=== PATIENT | female | born 1970 | race Caucasian/White ===

== ENCOUNTER 2019-09-07 18:51 | Emergency (ER) | payer MEDICAID ==
[~2019-09-07] VITALS: Ht 165.1 cm; Wt 89.8 kg
[~2019-09-07 18:51] MED LIST: CODE118S2 PO
[2019-09-07 18:56] VITALS: BP 156/106
[2019-09-07] MEDS ORDERED: IBUPROFEN 600 MG TAB PO ONE (19:30)
[2019-09-07 20:28] VITALS: BP 156/106
== END 2019-09-07 20:33 | disposition home or self-care (01) ==
LOC: MED 18:51
DX: S60.221A Contusion of right hand, initial encounter (principal); I10 Essential (primary) hypertension; Z79.899 Other long term (current) drug therapy; Y93.89 Activity, other specified; Y92.89 Other specified places as the place of occurrence of the external cause; Y99.8 Other external cause status
CPT/HCPCS: 29125; 73130; 99283; Q0092

== ENCOUNTER 2020-01-18 09:45 | Emergency (ER) | payer SELFPAY ==
[~2020-01-18] VITALS: Ht 165.1 cm; Wt 86.2 kg
[2020-01-18 09:51] VITALS: BP 153/81
--- NOTE | 2020-01-18 09:56 | NUR ---
WAIT AT LOBBY. HANDED ON URINE CUP.
--- NOTE | 2020-01-18 10:09 | NUR ---
PT AMBULATED TO BED 3.
--- NOTE | 2020-01-18 10:23 | NUR ---
49/F C/O NAUSEA, EPIGASTRIC PAIN RADIATING UP THE CHEST X LAST NIGHT THAT STARTED AFTER EATING. PT STATES SHE HAS ACID REFLUX. STATES MILD SOB ALONG W/ PAIN. BP 153/81 AT THIS TIME. CONNECTED TO BEDSIDE MONITOR. BEDRAILS UP X1, BED LOCKED & LOW, ERMD TO EVALUATE . MED HX: HTN
--- NOTE | 2020-01-18 10:38 | NUR ---
DR MORTENSEN EVALUATING PT AT BEDSIDE
--- NOTE | 2020-01-18 10:40 | NUR ---
BLOOD DRAW HANDED TO EXTRUDING DEPARTMENT SUPERVISOR AT BEDSIDE
[2020-01-18 10:51] LABS: BASOPHILS # (AUTO) 0.1 K/uL (0.00-0.22); BASOPHILS % (AUTO) 0.9 % (0.0-2.0); EOSINOPHILS % (AUTO) 0.4 % (0.0-4.0); HEMATOCRIT 44.5 % (36-48); HEMOGLOBIN 14.8 g/dL (12.0-16.0); LYMPHOCYTES # (AUTO) 1.4 K/uL (2.5-16.5); LYMPHOCYTES % (AUTO) 17.7 % (20.5-51.1); MEAN CORPUSCULAR HEMOGLOBIN 31 pg (27-31); MEAN CORPUSCULAR HGB CONC 33 g/dL (33-37); MEAN CORPUSCULAR VOLUME 92.6 fL (80-94); MONOCYTES # (AUTO) 0.5 K/uL (0.8-1.0); NEUTROPHILS # (AUTO) 5.9 K/uL (1.8-7.7); PLATELET COUNT (AUTO) 331 K/uL (140-450); RED BLOOD CELL COUNT(AUTO) 4.81 MIL/uL (4.20-5.40); RED CELL DISTRIBUTION WIDTH 13.5 % (11.6-13.7); WHITE BLOOD COUNT (AUTO) 7.8 K/uL (4.8-10.8)
[2020-01-18 10:53] LABS: APPEARANCE,URINE CLEAR (CLEAR); BILIRUBIN,URINE NEGATIVE (NEGATIVE); BLOOD, URINE 1+ (NEGATIVE); COLOR,URINE YELLOW (YELLOW); LEUKOCYTE ESTERASE ,URINE NEGATIVE (NEGATIVE); NITRITE, URINE NEGATIVE (NEGATIVE); PH,URINE 7.5 (5.0-9.0); UGLUCOSE NEGATIVE (NEGATIVE)
[2020-01-18 11:16] LABS: ALBUMIN 3.8 g/dL (3.4-5.0); ANION GAP 15.1 (8-16); CREATININE 0.8 mg/dL (0.6-1.3); POTASSIUM 4.1 mmol/L (3.5-5.1); TOTAL BILIRUBIN 0.3 mg/dL (0.0-1.0)
--- NOTE | 2020-01-18 11:20 | NUR ---
AMB TO AND BACK TO BED 03 FROM RESTROOM W/ STEADY GAIT
[2020-01-18 11:21] LABS: WBC,URINE 0-5 /HPF (0-5)
[2020-01-18] MEDS ORDERED: FAMOTIDINE 20 MG TAB PO ONE (12:40)
[2020-01-18] MEDS ORDERED: DICYCLOMINE HCL LIQUID 20 MG, ALUMINUM HYD/MAG/SIMETHICONE 30 ML, LIDOCAINE VISCOUS 2% ... PO ONE ×3 (12:40)
[2020-01-18] MEDS ORDERED: LIDOCAINE VISCOUS 2% 20 ML UDC ONE (12:41)
[2020-01-18] MEDS ORDERED: DICYCLOMINE HCL LIQUID 10 MG/5 ML UDC ONE (12:41)
[2020-01-18] MEDS ORDERED: ALUMINUM HYD/MAG/SIMETHICONE 30 ML UDC ONE (12:41)
[2020-01-18 13:44] VITALS: BP 100/72
--- NOTE | 2020-01-18 13:44 | NUR ---
IV removed, catheter intact and site benign. Applied folded 4x4 gauze and tape to stop bleeding.
--- NOTE | 2020-01-18 13:44 | NUR ---
Patient discharged with v/s stable. Written and verbal after care instructions given and explained. Patient alert, oriented and verbalized understanding of instructions. Ambulatory with steady gait. All questions addressed prior to discharge. ID band removed. Patient advised to follow up with PMD. Rx of Pepcid 20mg given. Patient educated on indication of medication including possible reaction and side effects. Opportunity to ask questions provided and answered.
== END 2020-01-18 13:44 | disposition home or self-care (01) ==
LOC: MED 09:45
DX: K59.00 Constipation, unspecified (principal); E78.00 Pure hypercholesterolemia, unspecified; I10 Essential (primary) hypertension; K37 Unspecified appendicitis; K81.9 Cholecystitis, unspecified; K85.90 Acute pancreatitis without necrosis or infection, unspecified
CPT/HCPCS: 36415; 80053; 81001; 81025; 83690; 84484; 84703; 85025; 93005; 99284

== ENCOUNTER 2020-06-03 04:14 | Emergency (ER) | payer SELFPAY ==
[~2020-06-03] VITALS: Ht 165.1 cm; Wt 81.6 kg
[2020-06-03 04:35] VITALS: BP 123/87
--- NOTE | 2020-06-03 04:35 | NUR ---
TO BED # 04 AMBULATORY
--- NOTE | 2020-06-03 05:40 | NUR ---
SEEN AND EXAMINED BY RENEE WITH ORDERS AND CARRIED OUT.
--- NOTE | 2020-06-03 06:45 | NUR ---
RESULT BACK AND NOTED BY ERMD AND FOR D/C
[2020-06-03 07:00] VITALS: BP 123/87
== END 2020-06-03 07:00 | disposition home or self-care (01) ==
LOC: MED 04:14
DX: M79.602 Pain in left arm (principal); I10 Essential (primary) hypertension; Z98.890 Other specified postprocedural states; Z79.899 Other long term (current) drug therapy
CPT/HCPCS: 93005; 99283

== ENCOUNTER 2020-12-11 09:23 | Emergency (ER) | payer MEDICAID ==
[~2020-12-11] VITALS: Ht 165.1 cm; Wt 86.2 kg
[2020-12-11 09:36] VITALS: BP 117/76
[2020-12-11] MEDS ORDERED: DICYCLOMINE HCL LIQUID 20 MG, ALUMINUM HYD/MAG/SIMETHICONE 30 ML, LIDOCAINE VISCOUS 2% ... PO ONE ×3 (11:10)
[2020-12-11] MEDS ORDERED: ONDANSETRON 4 MG ODT PO ONE (11:10)
[2020-12-11] MEDS ORDERED: LIDOCAINE VISCOUS 2% 20 ML UDC ONE (11:11)
[2020-12-11] MEDS ORDERED: ALUMINUM HYD/MAG/SIMETHICONE 30 ML UDC ONE (11:11)
[2020-12-11] MEDS ORDERED: DICYCLOMINE HCL LIQUID 10 MG/5 ML UDC ONE (11:11)
[2020-12-11] MEDS ORDERED: ONDA-24 PO (12:51)
[2020-12-11] MEDS ORDERED: BEN10 PO (12:51)
[2020-12-11 13:05] VITALS: BP 117/76
== END 2020-12-11 13:01 | disposition home or self-care (01) ==
LOC: MED 09:23
DX: A05.9 Bacterial foodborne intoxication, unspecified (principal); K52.9 Noninfective gastroenteritis and colitis, unspecified; I10 Essential (primary) hypertension; Z79.899 Other long term (current) drug therapy; Z98.890 Other specified postprocedural states
CPT/HCPCS: 81002; 81025; 99283; Q0162

== ENCOUNTER 2021-01-01 20:52 | Emergency (ER) | payer MEDICAID ==
[~2021-01-01] VITALS: Ht 162.6 cm; Wt 89.8 kg
[~2021-01-01 20:52] MED LIST changes: +BEN10 PO; +ONDA-24 PO
[2021-01-01 21:35] VITALS: BP 146/94
--- NOTE | 2021-01-01 21:42 | NUR ---
EKG PERFORMED IN TRIAGE ROOM. EKG READS SINUS RHYTHM @ 69
--- NOTE | 2021-01-01 22:03 | NUR ---
PATIENT AMBUALTED TO BED 10 WITH STEADY GAIT.
--- NOTE | 2021-01-01 22:05 | NUR ---
PT. IS A 50 Y/O FEMALE WHO CAME INTO ED WITH C/O OF CEHST PAIN. PT. STATES THAT IT STARTED IN THE MORNING AND WHEN ASKED TO DESCRIBE THE PAIN, PT. STATES THAT IT IS A STABBING PAIN THAT RADIATES TO RIGHT ARM AND "COMES AND GOES." PT. RATES PAIN 5/10 ON THE PAIN SCALE AT THIS TIME. DENIES N/V/D; SKIN IS PINK/WARM/DRY; AAOX4 WITH EVEN AND STEADY GAIT; LUNGS CLEAR BL; HR EVEN AND REGULAR; PT DENIES ANY FEVER, CP, SOB, OR COUGH AT THIS TIME; VSS; PATIENT POSITIONED FOR COMFORT WITH BOYFRIEND AT BEDSIDE; HOB ELEVATED; BEDRAILS UP X1; BED DOWN. ER MD MADE AWARE OF PT STATUS. PMH: HTN AND PANIC ATTACKS ALLERGIES: NKA
--- NOTE | 2021-01-01 23:12 | NUR ---
ERMD AT BEDSIDE FOR MEDICAL EVALUATION.
[2021-01-01] MEDS ORDERED: PANTOPRAZOLE 40 MG TABEC PO ONE (23:15)
[2021-01-01] MEDS ORDERED: LORazepam 0.5 MG TAB PO ONE (23:15)
[2021-01-01] MEDS ORDERED: ASPIRIN 325 MG TAB PO ONE (23:15)
--- NOTE | 2021-01-01 23:20 | NUR ---
LAB AT BEDSIDE
--- NOTE | 2021-01-01 23:25 | NUR ---
SECOND EKG PERFORMED AT BEDSIDE. EKG READS SINUS RHYTHM @ 65
[2021-01-01 23:27] LABS: BASOPHILS % (AUTO) 0.5 % (0.0-2.0); EOSINOPHILS # (AUTO) 0.1 K/uL (0-0.4); EOSINOPHILS % (AUTO) 1.3 % (0.0-4.0); HEMATOCRIT 41.9 % (36-48); HEMOGLOBIN 14.1 g/dL (12.0-16.0); LYMPHOCYTES # (AUTO) 2.4 K/uL (2.5-16.5); LYMPHOCYTES % (AUTO) 29.3 % (20.5-51.1); MEAN CORPUSCULAR HEMOGLOBIN 31 pg (27-31); MEAN CORPUSCULAR HGB CONC 34 g/dL (33-37); MEAN CORPUSCULAR VOLUME 93.6 fL (80-94); MONOCYTES # (AUTO) 0.7 K/uL (0.8-1.0); MONOCYTES % (AUTO) 9.1 % (1.7-9.3); NEUTROPHILS # (AUTO) 4.9 K/uL (1.8-7.7); NEUTROPHILS % (AUTO) 59.8 % (42.2-75.2); PLATELET COUNT (AUTO) 300 K/uL (140-450); RED BLOOD CELL COUNT(AUTO) 4.48 MIL/uL (4.20-5.40); RED CELL DISTRIBUTION WIDTH 13.6 % (11.6-13.7); WHITE BLOOD COUNT (AUTO) 8.2 K/uL (4.8-10.8)
--- NOTE | 2021-01-01 23:30 | NUR ---
XRAY AT BEDSIDE
[2021-01-01 23:46] LABS: ANION GAP 8.5 (8-16); CARBON DIOXIDE 29.4 mmol/L (21-32); CREATININE 1.2 mg/dL (0.6-1.3); POTASSIUM 3.9 mmol/L (3.5-5.1); TOTAL BILIRUBIN 0.3 mg/dL (0.0-1.0)
--- NOTE | 2021-01-02 01:14 | NUR ---
LAB AT BEDSIDE FOR REPEAT TROPONIN.
[2021-01-02] MEDS ORDERED: PANT40EC PO (01:21)
[2021-01-02] MEDS ORDERED: HYDR-637 PO (01:21)
[2021-01-02 01:31] VITALS: BP 126/72
--- NOTE | 2021-01-02 01:31 | NUR ---
Patient discharged with v/s stable. Written and verbal after care instructions given and explained. Patient alert, oriented and verbalized understanding of instructions. Ambulatory with steady gait. All questions addressed prior to discharge. ID band removed. Patient advised to follow up with PMD. Rx of HYDROXYZINE HYDROCHLORIDE AND PROTONIX given. Patient educated on indication of medication including possible reaction and side effects. Opportunity to ask questions provided and answered.
== END 2021-01-02 01:31 | disposition home or self-care (01) ==
LOC: MED 20:52
DX: R07.9 Chest pain, unspecified (principal); I10 Essential (primary) hypertension; Z79.899 Other long term (current) drug therapy
CPT/HCPCS: 36415; 71045; 80053; 84484; 85025; 93005; 99285

== ENCOUNTER 2021-07-27 19:35 | Emergency (ER) | payer MEDICAID ==
[~2021-07-27] VITALS: Ht 162.6 cm; Wt 77.1 kg
[~2021-07-27 19:35] MED LIST changes: +HYDR-637 PO; +ONDA-188 PO; -ONDA-24 PO; +PANT40EC PO
[2021-07-27 19:38] VITALS: BP 141/87
[2021-07-27 23:00] VITALS: BP 136/81
--- NOTE | 2021-07-27 23:00 | NUR ---
Patient discharged with v/s stable. Written and verbal after care instructions given and explained. Patient verbalized understanding. Ambulatory with steady gait. All questions addressed prior to discharge. Advised to follow up with PMD.
== END 2021-07-27 23:00 | disposition home or self-care (01) ==
LOC: MED 19:35
DX: F41.9 Anxiety disorder, unspecified (principal); R07.9 Chest pain, unspecified; M79.602 Pain in left arm
CPT/HCPCS: 36415; 71045; 81002; 81025; 84484; 93005; 99285

== ENCOUNTER 2021-12-01 08:21 | Emergency (ER) | payer MEDICAID, OTHER ==
[~2021-12-01] VITALS: Ht 165.1 cm; Wt 90.7 kg
[2021-12-01 08:33] VITALS: BP 150/75
--- NOTE | 2021-12-01 08:39 | NUR ---
51/F PRESENTS TO ED WITH C/O EPIGASTRIC PAIN SINCE LAST NIGHT, PATIENT REPORTS HX OF GASTRITIS AND REPORTS TAKING OMEPRAZOLE WITH NO RELIEF. PATIENT REPORTS NAUSEA, PATIENT STATES TWO DAYS AGO SHE WAS PRODUCING "LITTLE URINE," PATIENT DENIES V/D, DYSURIA OR HEMATURIA.
[2021-12-01] MEDS ORDERED: DICYCLOMINE HCL LIQUID 20 MG, ALUMINUM HYD/MAG/SIMETHICONE 30 ML, LIDOCAINE VISCOUS 2% ... PO ONE ×3 (09:35)
[2021-12-01] MEDS ORDERED: KETOROLAC 30 MG/ML VIAL IVP ONE (09:35)
[2021-12-01] MEDS ORDERED: DICYCLOMINE HCL LIQUID 10 MG/5 ML UDC ONE (09:44)
[2021-12-01] MEDS ORDERED: ALUMINUM HYD/MAG/SIMETHICONE 30 ML UDC ONE (09:44)
[2021-12-01 11:26] LABS: BASOPHILS % (AUTO) 0.5 % (0.0-2.0); EOSINOPHILS % (AUTO) 0.6 % (0.0-4.0); HEMATOCRIT 42.9 % (36-48); HEMOGLOBIN 14.3 g/dL (12.0-16.0); LYMPHOCYTES # (AUTO) 1.5 K/uL (2.5-16.5); LYMPHOCYTES % (AUTO) 20.9 % (20.5-51.1); MEAN CORPUSCULAR HEMOGLOBIN 31 pg (27-31); MEAN CORPUSCULAR HGB CONC 34 g/dL (33-37); MEAN CORPUSCULAR VOLUME 92.6 fL (80-94); MONOCYTES # (AUTO) 0.4 K/uL (0.8-1.0); MONOCYTES % (AUTO) 5.9 % (1.7-9.3); NEUTROPHILS # (AUTO) 5.1 K/uL (1.8-7.7); NEUTROPHILS % (AUTO) 72.1 % (42.2-75.2); PLATELET COUNT (AUTO) 288 K/uL (140-450); RED BLOOD CELL COUNT(AUTO) 4.63 MIL/uL (4.20-5.40); RED CELL DISTRIBUTION WIDTH 13.7 % (11.6-13.7)
[2021-12-01 11:48] LABS: ALBUMIN 3.3 g/dL (3.4-5.0); ANION GAP 8.4 (8-16); CARBON DIOXIDE 29.3 mmol/L (21-32); CREATININE 0.7 mg/dL (0.6-1.3); POTASSIUM 3.7 mmol/L (3.5-5.1); TOTAL BILIRUBIN 0.4 mg/dL (0.0-1.0)
[2021-12-01] MEDS ORDERED: SUCR1SUS7 PO (11:54)
[2021-12-01 12:02] VITALS: BP 125/76
--- NOTE | 2021-12-01 12:06 | NUR ---
IV removed, catheter intact and site benign. Applied folded 4x4 gauze and tape to stop bleeding.
--- NOTE | 2021-12-01 12:06 | NUR ---
Patient discharged with v/s stable. Written and verbal after care instructions FOR GERD given and explained. Patient alert, oriented and verbalized understanding of instructions. Ambulatory with steady gait. All questions addressed prior to discharge. ID band removed. Patient advised to follow up with PMD. Rx of SUCRALFATE given. Opportunity to ask questions provided and answered.
--- NOTE | 2021-12-01 12:08 | NUR ---
Chart checked and completed. The patient's care was reviewed and supervised by Xiomara Fernando RN.
== END 2021-12-01 12:08 | disposition home or self-care (01) ==
LOC: MED 08:21
DX: K21.9 Gastro-esophageal reflux disease without esophagitis (principal); R11.2 Nausea with vomiting, unspecified; I10 Essential (primary) hypertension; E78.5 Hyperlipidemia, unspecified; Z79.899 Other long term (current) drug therapy
CPT/HCPCS: 36415; 80053; 82150; 83690; 85025; 96374; 99283; J1885

== ENCOUNTER 2022-05-03 20:04 | Emergency (ER) | payer OTHER ==
[~2022-05-03] VITALS: Ht 165.1 cm; Wt 88.0 kg
[~2022-05-03 20:04] MED LIST changes: +SUCR1SUS7 PO
[2022-05-03 20:45] VITALS: BP 165/77
--- NOTE | 2022-05-03 20:48 | NUR ---
TO LOBBY A/W BED AMBULATORY
--- NOTE | 2022-05-03 23:12 | NUR ---
PT TAKEN TO BED 5
[2022-05-03] MEDS ORDERED: DICYCLOMINE HCL LIQUID 20 MG, ALUMINUM HYD/MAG/SIMETHICONE 30 ML, LIDOCAINE VISCOUS 2% ... PO ONE ×3 (23:20)
[2022-05-03] MEDS ORDERED: DICYCLOMINE HCL LIQUID 10 MG/5 ML UDC ONE (23:34)
[2022-05-03] MEDS ORDERED: ALUMINUM HYD/MAG/SIMETHICONE 30 ML UDC ONE (23:34)
--- NOTE | 2022-05-03 23:39 | NUR ---
51 YO F BIB SELF WITH C/C OF 01/04 GERD X2DAYS. PT STATES SHE HAS HAD GERD FOR A FEW YEARS ON AND OFF. PT DENIES TAKING MEDICATION FOR PAIN. DENIES CHEST PAIN. REPORTS BURNING THAT GOES FROM UPPER ABD TO THROAT. HX:HTN, GERD NKA
[2022-05-04] MEDS ORDERED: LORazepam 1 MG TAB PO ONE (00:05)
[2022-05-04] MEDS ORDERED: KETOROLAC 30 MG/ML VIAL IM ONE (00:05)
--- NOTE | 2022-05-04 00:05 | NUR ---
PT EXPRESSES MINIMAL RELIEF 11/04, RENEE CRONIN MADE AWARE.
--- NOTE | 2022-05-04 00:26 | NUR ---
PT CONFIRMED SHE HAS A RIDE HOME.
[2022-05-04] MEDS ORDERED: OMEP-278 PO (00:37)
[2022-05-04] MEDS ORDERED: MAG-27 PO (00:37)
[2022-05-04 01:16] VITALS: BP 135/83
--- NOTE | 2022-05-04 01:16 | NUR ---
Patient discharged with v/s stable. Written and verbal after care instructions given and explained. Patient alert, oriented and verbalized understanding of instructions. Ambulatory with steady gait. All questions addressed prior to discharge. ID band removed. Patient advised to follow up with PMD. Rx of OMEPRAZOLE AND MYLANTA given. Patient educated on indication of medication including possible reaction and side effects. Opportunity to ask questions provided and answered.
== END 2022-05-04 01:16 | disposition home or self-care (01) ==
LOC: MED 20:04
DX: R10.13 Epigastric pain (principal); I10 Essential (primary) hypertension; Z79.899 Other long term (current) drug therapy; Z98.890 Other specified postprocedural states
CPT/HCPCS: 93005; 96372; 99283; J1885

== ENCOUNTER 2024-02-18 17:12 | Emergency (ER) | payer OTHER ==
[~2024-02-18] VITALS: Ht 167.6 cm; Wt 89.8 kg
[~2024-02-18 17:12] MED LIST changes: +MAG-27 PO; +OMEP-278 PO
[2024-02-18 17:23] VITALS: BP 161/87; PULSE 82; RESP 18; TEMP 98; O2SAT 99
--- NOTE | 2024-02-18 19:33 | NUR ---
UA IN ROOM
[2024-02-18] MEDS: ACETAMINOPHEN 325 MG TAB PO ONE (20:21)
[2024-02-18 20:26] LABS: APPEARANCE,URINE TURBID (CLEAR); BILIRUBIN,URINE NEGATIVE (NEGATIVE); BLOOD, URINE 1+ (NEGATIVE); COLOR,URINE YELLOW (YELLOW); LEUKOCYTE ESTERASE ,URINE NEGATIVE (NEGATIVE); NITRITE, URINE NEGATIVE (NEGATIVE); PROTEIN,URINE NEGATIVE (NEGATIVE); UGLUCOSE NEGATIVE (NEGATIVE); UROBILINOGEN,URINE 0.2 EU/dL (0.2 - 1)
--- NOTE | 2024-02-18 20:32 | NUR ---
EKG COMPLETED BY EMT. PT REPORT INCREASE STRESS PAST 2 DAYS. PT REPORT ARM TINGLING THAT 'FEELS LIKE ANTS' ON AND OFF SINCE THIS MORNING. CURRENT VITALS 161/86 111MAP RR20 HR89 SP02 97% RA. PT REPORTS MEDICATION HYDROCHLOROTHIAZIDE 25MG DAILY. SON AT BEDSIDE. PMHX GASTRITIS, HIGH CHOLESTEROL, HTN, PRE DIABETIC
[2024-02-18 20:35] LABS: BACTERIA,URINE 10-30 (MOD) /HPF (None Seen); SQUAMOUS EPITHELIAL CELL,UR 0-3 (FEW) /LPF (0-3 (FEW))
[2024-02-18 20:37] VITALS: RESP 20; O2SAT 97
--- NOTE | 2024-02-18 20:40 | NUR ---
XRAY AT BEDSIDE
[2024-02-18 21:30] LABS: BASOPHILS % (AUTO) 0.6 % (0.0-2.0); EOSINOPHILS # (AUTO) 0.1 K/uL (0-0.4); EOSINOPHILS % (AUTO) 0.9 % (0.0-4.0); HEMATOCRIT 43.9 % (36-48); HEMOGLOBIN 14.8 g/dL (12.0-16.0); LYMPHOCYTES % (AUTO) 27.5 % (20.5-51.1); MEAN CORPUSCULAR HEMOGLOBIN 31 pg (27-31); MEAN CORPUSCULAR HGB CONC 34 g/dL (33-37); MEAN CORPUSCULAR VOLUME 91.4 fL (80-94); MONOCYTES # (AUTO) 0.6 K/uL (0.8-1.0); MONOCYTES % (AUTO) 7.8 % (1.7-9.3); NEUTROPHILS # (AUTO) 4.6 K/uL (1.8-7.7); NEUTROPHILS % (AUTO) 63.2 % (42.2-75.2); PLATELET COUNT (AUTO) 295 K/uL (140-450); RED BLOOD CELL COUNT(AUTO) 4.81 MIL/uL (4.20-5.40); RED CELL DISTRIBUTION WIDTH 13.4 % (11.6-13.7); WHITE BLOOD COUNT (AUTO) 7.3 K/uL (4.8-10.8)
[2024-02-18 21:40] LABS: ANION GAP 11.9 (8-16); CALCIUM 9.7 mg/dL (8.5-10.1); CARBON DIOXIDE 28.3 mmol/L (21-32); CREATININE 0.8 mg/dL (0.6-1.3); POTASSIUM 3.2 mmol/L (3.5-5.1)
[2024-02-18] MEDS ORDERED: CEPH-588 PO (22:32)
--- NOTE | 2024-02-18 22:40 | NUR ---
PT D/C HOME ACCOMPANIED BY SON. D/C PACKAGE GIVEN. PT NOTIFIED ABOUT MEDICATION KEFLEX AND PHARMACY INSULATION WORKER. PT EDUCATION PROVIDED R/T D/C PAPERWORK. PT VERBALIZED UNDERSTANDING.
[2024-02-18 22:53] VITALS: BP 139/80; PULSE 61
== END 2024-02-18 22:40 | disposition home or self-care (01) ==
LOC: MED 17:12
DX: N39.0 Urinary tract infection, site not specified (principal); R07.89 Other chest pain; R42 Dizziness and giddiness; I10 Essential (primary) hypertension; K21.9 Gastro-esophageal reflux disease without esophagitis; Z79.899 Other long term (current) drug therapy
CPT/HCPCS: 36415; 71045; 80048; 81001; 84484; 85025; 87086; 93005; 99285; Q0092